=== PATIENT | female | born 1955 | race Caucasian/White ===

== ENCOUNTER 2019-04-11 08:00 | Day surgery (SDC) | payer OTHER ==
[~2019-04-11] VITALS: Ht 160 cm; Wt 73.6 kg
[2019-04-11] MEDS ORDERED: SODIUM CHLORIDE 0.9% 1,000 ML IV SCH (08:28)
[2019-04-11] MEDS ORDERED: CEFAZOLIN PMX 1GM/50ML 50 ML IV ONE (08:31)
[2019-04-11] MEDS ORDERED: LORA10TA75 PO (08:34)
[2019-04-11] MEDS ORDERED: ALPR0.25 PO (08:34)
[2019-04-11] MEDS ORDERED: DIPH25CA61 PO (08:34)
[2019-04-11] MEDS ORDERED: OMEP20TA62 PO (08:34)
[2019-04-11] MEDS ORDERED: PROC10TA2 PO (08:34)
[2019-04-11] MEDS ORDERED: OXYC5CAP2 PO (08:34)
[2019-04-11 08:54] VITALS: BP 116/77
[2019-04-11] MEDS ORDERED: PLEASE ENTER HEIGHT AND WEIGHT MC SCH (09:00)
[2019-04-11] MEDS ORDERED: FENTANYL PF 100 MCG/2ML ONE (10:21)
[2019-04-11] MEDS ORDERED: NALOXONE 1 MG/ML, 2ML ONE (10:21)
[2019-04-11] MEDS ORDERED: MIDAZOLAM 1 MG/ML, 5ML ONE (10:21)
[2019-04-11] MEDS ORDERED: FLUMAZENIL 0.1 MG/1 ML, 5ML ONE (10:21)
[2019-04-11] MEDS ORDERED: LIDOCAINE 1%, 20ML ONE (10:37)
== END 2019-04-11 13:30 | disposition home or self-care (01) ==
LOC: OUT 08:00
PROVIDERS: ATTEND Radiology Diagnostic Radiology
DX: Z45.2 Encounter for adjustment and management of vascular access device (principal); C78.7 Secondary malignant neoplasm of liver and intrahepatic bile duct; C79.51 Secondary malignant neoplasm of bone; C50.912 Malignant neoplasm of unspecified site of left female breast; Z88.1 Allergy status to other antibiotic agents; Z88.8 Allergy status to other drugs, medicaments and biological substances; Z87.891 Personal history of nicotine dependence
CPT/HCPCS: 49418; 99156; 99157; C1729; J0690; J2250; J3010; J7030; J2310